=== PATIENT | male | born 1965 | race Two or more races ===

== ENCOUNTER 2021-01-05 05:47 | Emergency (ER) | payer MEDICAID, OTHER ==
[~2021-01-05] VITALS: Ht 167.6 cm; Wt 80.7 kg
[2021-01-05] MEDS ORDERED: LORAZEPAM INJ 2 MG/ML VIAL ONE (06:24)
[2021-01-05] MEDS ORDERED: IV NS 0.9% 1,000 ML BAG IV ONE (06:30)
[2021-01-05] MEDS ORDERED: LORAZEPAM INJ 2 MG/ML VIAL IV ONE (06:30)
--- NOTE | 2021-01-05 06:38 | NUR ---
PT AAOX4. AMBULATORY WITH STEADY GAIT. BIBSELF C/O POOR INTAKE FOR THE PAST COUPLE OF WEEKS +FEELING ANXIOUS. PT PLACED ON MONITOR AND PULSE OX. NO ACUTE DISTRESS NOTED. AWAITING FOR ER MD FOR EVAL AND ORDERS.
[2021-01-05 07:02] LABS: BASOPHILS % (AUTO) 0.2 % (0.0-2.0); EOSINOPHILS % (AUTO) 0.3 % (0.0-6.0); HEMATOCRIT 42 % (39-51); HEMOGLOBIN 14.7 g/dL (13.5-17.5); LYMPHOCYTES % (AUTO) 12.9 % (20.0-44.0); MEAN CORPUSCULAR HGB CONC 35 g/dl (31.0-36.0); MEAN CORPUSCULAR VOLUME 86 fL (80-96); MONOCYTES # (AUTO) 0.6 /CMM (0.1-1.30); MONOCYTES % (AUTO) 7.7 % (2.0-12.0); NEUTROPHILS # (AUTO) 5.8 /CMM (1.8-8.9); NEUTROPHILS % (AUTO) 78.9 % (43.0-81.0); PLATELET COUNT (AUTO) 329 /CMM (150-450); RED BLOOD CELL COUNT(AUTO) 4.91 MIL/uL (4.5-6.0); WHITE BLOOD COUNT (AUTO) 7.4 K/uL (4.3-11.0)
--- NOTE | 2021-01-05 07:06 | NUR ---
PT RESTING COMFORTABLY. VSS.
--- NOTE | 2021-01-05 07:13 | NUR ---
SPOKE TO PT, STATED HE FEELS BETTER. REPORT GIVEN TO MARTIR WALL FOR DANIELE
[2021-01-05 07:54] LABS: CALCIUM, SERUM 8.9 mg/dL (8.5-10.1); CREATININE 0.9 mg/dL (0.6-1.3); POTASSIUM 4.1 mmol/L (3.5-5.1)
[2021-01-05 08:00] LABS: ALBUMIN 4.1 g/dL (3.4-5.0); BILIRUBIN,DIRECT 0.2 mg/dL (0.0-0.2); BILIRUBIN,TOTAL 0.7 mg/dL (0.2-1.0); TOTAL PROTEIN, SERUM 7.2 g/dL (6.4-8.2)
--- NOTE | 2021-01-05 08:24 | NUR ---
home instrustion given agrees to see PMD in 2 days verbalized understanding.
--- NOTE | 2021-01-05 08:25 | NUR ---
Patient discharged to home in stable condition. Written and verbal after care instructions given. Patient verbalizes understanding of instruction.
--- NOTE | 2021-01-05 08:26 | NUR ---
patient denies pain or dizziness he is alert and orriented safe to dc home .
[2021-01-05 08:27] VITALS: BP 123/78
== END 2021-01-05 08:28 | disposition home or self-care (01) ==
LOC: ER 05:54
DX: E87.1 Hypo-osmolality and hyponatremia (principal); F41.9 Anxiety disorder, unspecified; F32.9 Major depressive disorder, single episode, unspecified
CPT/HCPCS: 36415; 80048; 80076; 83690; 85025; 93005 ×2; 96361; 96374; 99284; J2060; J7030

== ENCOUNTER 2021-01-06 18:43 | Emergency (ER) | payer MEDICAID, OTHER ==
[~2021-01-06] VITALS: Ht 167.6 cm; Wt 80.7 kg
--- NOTE | 2021-01-06 18:43 | NUR ---
PT BIB SELF C/O LOSS OF APPETITE ADN WEAKNESS. PT IS AAOX4, NOT IN RESPIRATORY DISTRESS, HOOKED TO TIRE REPAIRER, KEPT RESTED AND COMFORTABLE. WILL CONTINUE TO MONITOR.
--- NOTE | 2021-01-06 19:10 | NUR ---
IV LINE ESTABLISHED BLOOD DRAWN AND SENT TO LAB.
[2021-01-06 19:19] LABS: BASOPHILS % (AUTO) 0.3 % (0.0-2.0); EOSINOPHILS % (AUTO) 0.4 % (0.0-6.0); HEMATOCRIT 46 % (39-51); HEMOGLOBIN 16.1 g/dL (13.5-17.5); LYMPHOCYTES # (AUTO) 1.3 /CMM (0.8-4.8); LYMPHOCYTES % (AUTO) 12.5 % (20.0-44.0); MEAN CORPUSCULAR HGB CONC 35 g/dl (31.0-36.0); MEAN CORPUSCULAR VOLUME 86 fL (80-96); MONOCYTES % (AUTO) 9.3 % (2.0-12.0); NEUTROPHILS # (AUTO) 8.2 /CMM (1.8-8.9); NEUTROPHILS % (AUTO) 77.5 % (43.0-81.0); PLATELET COUNT (AUTO) 340 /CMM (150-450); RED BLOOD CELL COUNT(AUTO) 5.27 MIL/uL (4.5-6.0); WHITE BLOOD COUNT (AUTO) 10.6 K/uL (4.3-11.0)
--- NOTE | 2021-01-06 19:23 | NUR ---
REPORT GIVEN TO DUKE MALDONADO FOR DANIELE.
[2021-01-06] MEDS ORDERED: IV NS 0.9% 1,000 ML BAG IV ONE (19:30)
[2021-01-06 19:32] LABS: ALBUMIN 4.4 g/dL (3.4-5.0); BILIRUBIN,DIRECT 0.2 mg/dL (0.0-0.2); BILIRUBIN,TOTAL 0.7 mg/dL (0.2-1.0); CALCIUM, SERUM 9.2 mg/dL (8.5-10.1); CREATININE 0.9 mg/dL (0.6-1.3); POTASSIUM 3.5 mmol/L (3.5-5.1); TOTAL PROTEIN, SERUM 7.6 g/dL (6.4-8.2)
--- NOTE | 2021-01-06 19:43 | NUR ---
PT UNABLE TO PROVIDE URINE SAMPLE AT THIS TIME.
[2021-01-06] MEDS ORDERED: IV NS 0.9% 250 ML IV ONE (20:01)
[2021-01-06] MEDS ORDERED: IOHEXOL-300 100 ML VIAL IV ONE (20:01)
--- NOTE | 2021-01-06 20:10 | NUR ---
PATIENT TO CT SCAN AT THIS TIME.
--- NOTE | 2021-01-06 20:29 | NUR ---
PATIENT ABLE TO GIVE URINE SAMPLE AND SAMPLE SENT TO LAB.
[2021-01-06 20:35] LABS: BILIRUBIN,URINE Negative (NEGATIVE); COLOR,URINE YELLOW (YELLOW); LEUKOCYTE ESTERASE ,URINE Negative (NEGATIVE); NITRITE, URINE Negative (NEGATIVE); PH,URINE 6.5 (5.0-8.0); PROTEIN,URINE Negative (NEGATIVE); UGLUCOSE Negative (NEGATIVE); UROBILINOGEN,URINE 0.2 EU/dL (0.2)
[2021-01-06 20:50] LABS: BACTERIA,URINE Rare /HPF (None Seen); SQUAMOUS EPITHELIAL CELL,UR Few /HPF (None Seen); WBC,URINE NONE SEEN /HPF (0-3)
[2021-01-06 21:23] VITALS: BP 122/74
--- NOTE | 2021-01-06 21:23 | NUR ---
Patient discharged to home in stable condition. Written and verbal after care instructions given. Patient verbalizes understanding of instruction.
--- NOTE | 2021-01-06 21:23 | NUR ---
IV removed. Catheter intact and site benign. Pressure and 4x4 applied to site. No bleeding noted.
== END 2021-01-06 21:24 | disposition home or self-care (01) ==
LOC: ER 18:50
DX: F41.9 Anxiety disorder, unspecified (principal); E87.1 Hypo-osmolality and hyponatremia; F32.9 Major depressive disorder, single episode, unspecified; R19.7 Diarrhea, unspecified
CPT/HCPCS: 36415; 74177; 80048; 80076; 81001; 83690; 85025; 96360; 99285; J7050; Q9967